=== PATIENT | female | born 1960 | race Caucasian/White ===

== ENCOUNTER 2016-09-04 08:01 | Outpatient (CLI) ==
[2015-11-29 16:42] VITALS: BMI 31.8
--- NOTE | 2016-09-04 09:29 | MAMMO ---
EXAM: Digital screening mammogram HISTORY: Screening mammogram COMPARISON: Mammogram 03/17/2015 FINDINGS: Bilateral CC and MLO views of the breasts were performed digitally and demonstrate scatte red fibroglandular breast density (25 - 50%). There is no abnormal nodule or calcification. Benign calcifications are unchanged. There is no significant interval change. IMPRESSION: No new or suspicious calcification or nodule RECOMMENDATION: Annual screening mammogram BIRADS category II: Benign findings
== END 2016-09-04 08:02 | disposition home or self-care (01) ==
LOC: RAD 08:01
PROVIDERS: ATTEND Physician Assistant
DX: Z12.31 Encounter for screening mammogram for malignant neoplasm of breast (principal)

== ENCOUNTER 2017-01-06 14:29 | Emergency (ER) ==
[2017-01-06 14:42] VITALS: BP 174/70; TEMP 99.9; BMI 31.6
--- NOTE | 2017-01-06 16:11 | ED.PDOC ---
General ED Provider: Dr. SKYLER JIMENEZ JR Chief Complaint: Back Pain Stated Complaint: LOWER BACK. HAS BEEN TREATED FOR UTI WITH BACTRUM IN THE PAST WEEK. BLOOD IN URINE[End]5 days 99.9 86 20 96% 174/70 10 brunilda was on bactrim took for a week states stopped two days ago but then significant other notes returned and had a negative urine- knows day of week month person and place - early dementia present LOWER BACK PAIN right and left flank and lower Time Seen by Physician: 16:10 Mode of Arrival: Walk-In Information Source: Patient, Family Exam Limitations: No limitations Primary Care Provider: JAYLA DONALD Nursing and Triage Documentation Reviewed and Agree: No Review of Systems - Review Of Systems Constitutional: Reports: Malaise Eyes: Reports: No symptoms Ears, Nose, Mouth, Throat: Reports: No symptoms Respiratory: Reports: No symptoms Cardiac: Reports: No symptoms GI: Reports: No symptoms : Reports: Hematuria, Pain Musculoskeletal: Reports: Back pain, Muscle pain, Muscle stiffness Skin: Reports: No symptoms Neurological: Reports: Weakness Endocrine: Reports: No symptoms Hematologic/Lymphatic: Reports: No symptoms All Other Systems: Other Past Medical History - Past Medical History Endocrine: Reports: Hypothyroid, Dyslipidemia Cardiovascular: Reports: Hypertension Respiratory: Reports: COPD Hematological: Reports: None Gastrointestinal: Reports: None Genitourinary: Reports: None, UTI Neuro/Psych: Reports: Migraine, Anxiety, Depression Musculoskeletal: Reports: Arthritis, Back Pain (CHRONIC PAIN MANGEMENT) Cancer: Reports: None Last Menstrual Period: 1994 - Surgical History General Surgical History: Reports: Hysterectomy, - Family History Family History: Reports: Unknown - Social History Smoking Status: Current every day smoker, Heavy tobacco smoker Hx Substance Use: No Alcohol Screening: None - Immunizations Tetanus Shot up to Date: Yes Physical Exam - Physical Exam Appearance: Ill-appearing Ill-appearing: Moderate Pain Distress: Moderate Eyes: JOSSELINE, EOMI, Conjunctiva clear ENT: Ears normal, Nose normal, Oropharynx normal Neck: Supple Respiratory: Airway patent, Breath sounds clear, Breath sounds equal, Respirations nonlabored Cardiovascular: RRR, Pulses normal, No rub, No murmur GI/: Soft, No masses, Bowel sounds normal, No Organomegaly, Tender Musculoskeletal: Normal strength Skin: Warm, Dry, Normal color Neurological: Sensation intact, Motor intact, Reflexes intact, Cranial nerves intact, Alert, Oriented Psychiatric: Affect appropriate, Mood appropriate Critical Care Note - Critical Care Note Total Time (mins): 0 Course - Course Orders, Labs, Meds: Lab Review 01/06/17 16:06 Urine Color Yellow Urine Clarity Clear Urine pH 7.0 Ur Specific [place] 1.010 Urine Protein Negative Urine Glucose (UA) Negative Urine Ketones Negative Urine Blood Trace-lysed Urine Nitrite Negative Urine Bilirubin Negative Urine Urobilinogen 0.2 Ur Leukocyte Esterase 1+ Urine Microscopic RBC 0-2 Urine Microscopic WBC 0-2 Ur Squamous Epith Cells 2-5 Urine Bacteria Trace Orders Category Date Time Status CHLAMYDIA/GC AMPLIFICATION Stat LAB 01/06/17 16:06 Received UA [URINALYSIS C & S IF INDICATED] Stat LAB 01/06/17 16:[address] ABDOMEN/PELVIS WO CONTRAST Stat RADS 01/06/17 16:31 Completed Vital Signs: Temp Pulse Resp BP Pulse Ox 01/06/17 14:38 99.9 F H 86 20 174/70 H 96 Departure - Departure Time of Disposition: 18:00 Disposition: HOME SELF-CARE Discharge Problem: Backache Instructions: Acute Low Back Pain (ED) Condition: Good Pt referred to PMD for follow-up: Yes Additional Instructions: 8-10 cups of water daily no lifting for three days naprosyn for pain norco for pain not resolved flexeril for back spasms caution - norco and flexeril both cause drowsiness recheck PMD one week Prescriptions: Hydrocodone Bit/Acetaminophen [[place] 5-325] 1 - 2 tab PO Q6HR PRN #12 tablet PRN Reason: pain Naproxen [Naprosyn] 500 mg PO Q12HR PRN #30 tablet PRN Reason: PAIN Cyclobenzaprine HCl [Flexeril] 5 mg PO TID PRN #15 tablet PRN Reason: Spasms Allergies/Adverse Reactions: Allergies chlordiazepoxide HCl [From Librium] Adverse Reaction (Verified 11/29/15 16:55) doxepin [Doxepin] Adverse Reaction (Verified 11/29/15 16:55) quetiapine fumarate [From Seroquel] Adverse Reaction (Verified 11/29/15 16:55) Home Medications: Ambulatory Orders Aspirin [Taye Chewable Aspirin] 81 mg PO DAILY 08/28/13 Clonazepam 1 mg PO 1-3XD 08/28/13 Levothyroxine Sodium [Synthroid] 25 mcg PO DAILY 08/28/13 Lisinopril/Hydrochlorothiazide [Lisinopril-Hctz 20-25 mg Tab] 1 tab PO DAILY 12/06 Pravastatin Sodium [Pravachol] 20 mg PO BEDTIME 08/28/13 Hydrocodone/Acetaminophen [Vicodin 5-300 mg Tablet] 5 mg PO BID PRN 09/10/15 Venlafaxine HCl [Effexor Xr] 150 mg PO BID 09/10/15 Perphenazine 12 mg PO BEDTIME 10/13/15 Cyclobenzaprine HCl [Flexeril] 5 mg PO TID PRN #15 tablet 01/06/17 Hydrocodone Bit/Acetaminophen [[place] 5-325] 1 - 2 tab PO Q6HR PRN #12 tablet Naproxen [Naprosyn] 500 mg PO Q12HR PRN #30 tablet 01/06/17
[2017-01-06 16:21] LABS: BILIRUBIN,URINE Negative (NEGATIVE); KETONES,URINE Negative (NEGATIVE); LEUKOCYTE ESTERASE ,URINE 1+ (NEGATIVE); NITRITE,URINE Negative (NEGATIVE); PROTEIN,URINE Negative (NEGATIVE); URINE, BLOOD Trace-lysed (NEGATIVE)
[2017-01-06 16:23] LABS: ADD URINE MICROSCOPIC YES
[2017-01-06 16:24] LABS: BACTERIA,URINE TRACE (NOT PRESENT)
--- NOTE | 2017-01-06 17:00 | CT ---
EXAM: CT of the abdomen pelvis without contrast History: Abdominal pain, kidney stone. Comparison: CT abdomen pelvis 10/13/2015 Technique: Multiplanar CT images through the abdomen pelvis were obtained without the administratio n of IV contrast Findings: Lung bases are free of consolidation. No acute osseous abnormalities. Fatty infiltration of the liver. No discrete gallstones identified by CT. No peripancreatic inflam mation. Adrenal glands are unremarkable. No bowel obstruction. No free air. No ascites. No blad chery wall thickening. Uterus is not seen. No perirectal inflammation. The appendix is not dilated or inflamed. No renal stones. No ureteral calculi. No hydronephrosis. Impression: 1. No acute intra-abdominal or pelvic process. 2. Fatty infiltration of the liver.
== END 2017-01-06 18:18 | disposition home or self-care (01) ==
LOC: ED 14:29
DX: M54.5 Low back pain (principal); F17.210 Nicotine dependence, cigarettes, uncomplicated; Z79.899 Other long term (current) drug therapy
CPT/HCPCS: 36415; 81001; 87800; 99282

== ENCOUNTER 2017-01-13 18:21 | Outpatient (CLI) | END 2017-01-13 18:22 | disposition home or self-care (01) | LOC: AMBL 18:21 | PROVIDERS: ATTEND Emergency Medicine | DX: F41.0 Panic disorder [episodic paroxysmal anxiety] (principal); R06.4 Hyperventilation ==

== ENCOUNTER 2017-01-20 13:29 | Outpatient (CLI) | END 2017-01-20 13:30 | disposition home or self-care (01) | LOC: AMBL 13:29 | PROVIDERS: ATTEND Family Medicine | DX: R06.4 Hyperventilation (principal); R00.0 Tachycardia, unspecified ==

== ENCOUNTER 2017-01-21 13:00 | Outpatient (RCR) ==
--- NOTE | 2017-01-17 16:17 | RS.OPPTEV2 ---
Date of Note: 01/17/17 Visit #: 1 Date of Evaluation: 01/17/17 Payer Source: Medicaid Treatment Diagnosis: Vertigo, Dizziness History of Condition/Mechanism of Injury:: Patient reports a history of dizziness since 1992. Reports no head trauma or injury at the time of onset. States she did received treatment years ago for dizziness, which did help temporarily. Prior Level of Function.....Patient was independent with: ADL's, Self Care, Caregiving, Ambulation/Mobility, Community Integration/Access Functional Limitations: ADL's, Ambulation, Community Access/Integration Current Subjective/complaints:: Patient reports having dizzy episodes on a daily basis. Dizziness is triggered when turning over in bed, bending down/ bending over. States she drives and does not have dizziness when turning her head. She decribes her dizziness as feeling drunk. States she gets nauseated and has actually vomitted due to her dizziness. Denies neck pain or limited ROM. She takes medication for anxiety and has fallen due to a high moment of anxiety. She has taken medication such as Antivert in the past, but states she has not taken anything for dizziness in several years. Medical History Medical History: Hypertension, COPD Smoking Status: Current every day smoker Hx Home Medications: medication list not provided Patient's Goals: Her goal is to get relief of dizziness. Functional Outcome Measure - G Codes & Severity Modifier G Codes & Modifier: NA Source of G Code score: Na Observation - Observation Posture: Forward Head, Rounded Shoulders Gait - Gait Pattern Gait Comments: Patient ambulates without an assistive device with a cautious gait. Demonstrates no loss of balance while ambulating in the department. - ROM Comments: Cervical AROM is WFL's. Patient reports end range extension and right rotation trigger dizziness. Dizziness quickly resolves after returning to a neutral position. - Strength Cervical Extension: 5 Normal Cervical Flexion: 5 Normal Cervical Lateral Flexion: 5 Normal Cervical Rotation: 5 Normal Palpation Comments:: Patient denies tenderness with palpation throughout the cervical spine and suboccipital myofascia. Sensation - Sensation Right Upper Extremity: Intact/Normal Left Upper Extremity: Intact/Normal Additional Comments: Additional Comments: Modified VA test negative bilaterally. Sharp-Liliana (C2) is negative for instability. OCCULOMOTOR ASSESSMENT. Spontaneous Nystagmus is negative. Demonstrates left nystagmus with gaze change 30 degrees upper right and upper left. No saccades noted. Demonstrates no abnormality with convergence. Head Thrust and Head -Shaking Nystagmus demonstrates left sidede Nystagmus. Hallpike Eden is positive left and right, Roll Test negative bilaterally. Interventions - Exercise/Activities/Manual Therapy Exercises/Activities: Patient instructed in and performs Gopal maneuver for left sided BPPV. Given hand out for step by step instructions to perform Gopal maneuver at home. Instructed to perform 2-3 times a day and to stop if the maneuver seems to make her symptoms worse. Manual Therapy: NA HOME EXERCISE PROGRAM: left Gopal maneuver - Charges Total Direct Minutes: 55 mins Total Treatment Time: 55 mins Procedures billed for this date of service:: [facility] Assessment Assessment: Patient presents to therapy with diagnosis of BPPV. She demonstrates symptoms BPPV with involvement of the left anterior/posterior canals. She displays potential to benefit from performing Gopal maneuver to resolve her symptoms. Patient Education: Education of diagnosis, Home Exercise Program, Home Safety, Activity Modification, Education of Plan of Care Rehab Potential: Good Short Term Goals Goal #1: Pt to demonstrates ability to perform Gopal maneuver independently. Goal to be met by: 01/24/17 Progress towards Goal:: Progressing Duplex Trimmer Goals Goal #1: Pt to report no dizziness with turning over in bed or bending over. Goal to be met by: 02/07/17 Plan - Treatment to be Provided Procedures: Canalith Repositioning, Patient Education Modalities: No Modalities - Treatment Plan Frequency: 1-2 X week Duration: 3 weeks ORDER # VISITS AND/OR THROUGH DATE: 02/07/17 - Treatment Code (1) Dizziness Comments: R42 (2) BPPV (benign paroxysmal positional vertigo) Qualifiers: Laterality: left Qualified Description: Benign paroxysmal positional vertigo, left Qualifier Code(s): (H81.12) Benign paroxysmal vertigo, left ear
--- NOTE | 2017-01-21 13:53 | RS.OPPTDN ---
Subjective Date of Note: 01/21/17 Visit #: 2 Date of Evaluation: 01/17/17 Payer Source: Medicaid Treatment Diagnosis: Vertigo, Dizziness Current Subjective/complaints:: Mrs. Price states she feels a little less dizzy today. States she did not get a chance to work on the maneuver very much over the long weekend. States they had a lot of family drama. Agrees to perform the Gopal maneuver as demonstrated, 2-3 times a day this week. Interventions - Exercise/Activities/Manual Therapy Exercises/Activities: Reviewed and had patient perform the Gopal maneuver X 2. Patient's main reports of dizziness are with the head turn to the right and then moving into the final position from right sidelying to sitting. Reviewed instructions to avoid bending over and to sleep with head elevated approximately 30 degrees. Manual Therapy: NA HOME EXERCISE PROGRAM: left Gopal maneuver - Charges Total Direct Minutes: 15 mins Total Treatment Time: 15 mins Procedures billed for this date of service:: EX Assessment: Patient demonstrates the abilty to perform the Gopal maneuver independently. She will follow up with us for at least one more session to check her progress. Short Term Goals Goal #1: Pt to demonstrates ability to perform Gopal maneuver independently. Goal to be met by: 01/24/17 Progress towards Goal:: Progressing Shop Lead Goals Goal #1: Pt to report no dizziness with turning over in bed or bending over. Goal to be met by: 02/07/17 Plan PLAN OF CARE EXPIRES ON:: 02/07/17 ORDER # VISITS AND/OR THROUGH DATE: 02/07/17 PLAN: Continue Plan of Care
== END 2017-01-22 ==
PROVIDERS: ATTEND Physician Assistant
DX: H81.13 Benign paroxysmal vertigo, bilateral (principal)

== ENCOUNTER 2017-03-07 12:36 | Outpatient (CLI) | END 2017-03-07 12:37 | disposition home or self-care (01) | LOC: CAR 12:36 | PROVIDERS: ATTEND Physician Assistant | DX: Z51.81 Encounter for therapeutic drug level monitoring (principal); Z79.899 Other long term (current) drug therapy | CPT/HCPCS: 93005; 93010 ==

== ENCOUNTER 2017-06-13 14:40 | Outpatient (CLI) ==
[2017-06-14 06:13] LABS: RHEUMATOID ARTHRITIS FACTOR < 10.0 IU/mL (0.0-13.9)
[2017-06-16 19:12] LABS: ANTI-NUCLEAR ANTIBODY SCREEN Negative (Negative)
== END 2017-06-13 14:41 | disposition home or self-care (01) ==
LOC: LAB 14:40
PROVIDERS: ATTEND Physician Assistant
DX: M13.0 Polyarthritis, unspecified (principal); R30.0 Dysuria
CPT/HCPCS: 36415; 82306; 86038; 86200; 86430

== ENCOUNTER 2017-07-06 12:15 | Emergency (ER) ==
[2017-07-06 12:19] VITALS: BP 145/78; TEMP 97.8; BMI 30.9
--- NOTE | 2017-07-06 13:52 | CT ---
EXAM: CT of the chest without contrast History: Chest trauma and right rib pain, back pain. Comparison: Chest CT 09/10/2015 Technique: Multiplanar CT images through the thorax were obtained without the administration of IV c ontrast Findings: Heart size is within normal limits. No pericardial effusion. Great vessels are unremarka ble. No pathologically enlarged thoracic lymph nodes. Calcified granulomas again seen within the th orax. No consolidation. No pleural fluid and no pneumothorax. No suspicious lung masses or lung no dules. Within the visualized upper abdomen, no acute findings. The liver is probably fatty. No acute osseo us abnormalities. Impression: No acute intrathoracic process
--- NOTE | 2017-07-06 13:55 | CT ---
EXAM: CT of the thoracic spine without contrast History: Thoracic back trauma. Comparison: Chest CT 07/06/2017 Technique: Multiplanar CT images through the thoracic spine were obtained without the administration of IV contrast Findings: The visualized lungs are free of consolidation. Calcified granulomas are seen within the thorax. No acute fracture or subluxation of the thoracic spine. Mild to moderate multilevel degenerative dis c space narrowing with endplate sclerosis and small osteophyte formation. Bony spinal canal is not c ompromised. Impression: No acute osseous abnormality of the thoracic spine. Mild to moderate degenerative disc disease
--- NOTE | 2017-07-06 14:08 | ED.PDOC ---
General ED Provider: Dr. JESSICA CHOW Chief Complaint: Chest Wall Injury/Pain Stated Complaint: chest wall right sided Time Seen by Physician: 12:30 (blunt trauma force chest wall 3days ago) Mode of Arrival: Walk-In Information Source: Patient Exam Limitations: No limitations Primary Care Provider: JAYLA DONALD Nursing and Triage Documentation Reviewed and Agree: Yes Trauma/Injury Complaint Exam - Trauma Complaint/Exam Location of Pain or Injury: Reports: Chest, Back (thoracic) Mechanism of Injury: Reports: Fall Onset/Duration: 3 days ago Symptoms Are: Still present Initial Severity: Mild Current Severity: Mild Character: Reports: Aching Aggravating: Reports: Movement Alleviating: Reports: None Associated Signs and Symptoms: Denies: LOC, Confusion, Memory loss, Lethargy, Vomiting, Bleeding, Bruising, Swelling, Extremity disuse, Painful respiration, Hoarseness, Dysphagia, Hemoptysis, Significant blood loss Related History: Reports: Similar episode Penetrating Injury Risk Factors: Reports: None Related Surgical History: Reports: None Nexus Low Risk Criteria: No post-midline CS tender, No evidence of intoxicat., No Altered LOC, No focal neuro deficit, No distracting injuries Glascow Coma Scale (see protocol): 15 Trauma Findings: Absent: [place] eyes, Hemotympanum, Dental tenderness, Dental injury, Neck tenderness, Airway obstructed, Pelvic instability Differential Diagnoses: Contusions Review of Systems - Review Of Systems Constitutional: Reports: No symptoms Eyes: Reports: No symptoms Ears, Nose, Mouth, Throat: Reports: No symptoms Respiratory: Reports: No symptoms Cardiac: Reports: Chest pain (right chest wall) GI: Reports: No symptoms : Reports: No symptoms Musculoskeletal: Reports: No symptoms Skin: Reports: No symptoms Neurological: Reports: No symptoms Endocrine: Reports: No symptoms Hematologic/Lymphatic: Reports: No symptoms All Other Systems: Reviewed and Negative Past Medical History - Past Medical History Previously Healthy: Yes Endocrine: Reports: Hypothyroid, Dyslipidemia Cardiovascular: Reports: Hypertension Respiratory: Reports: COPD Hematological: Reports: None Gastrointestinal: Reports: None Genitourinary: Reports: None, UTI Neuro/Psych: Reports: Migraine, Anxiety, Depression Musculoskeletal: Reports: Arthritis, Back Pain Cancer: Reports: None Last Menstrual Period: HYSTERECTOMY - Surgical History General Surgical History: Reports: Hysterectomy, - Family History Family History: Reports: Unknown - Social History Smoking Status: Current every day smoker, Heavy tobacco smoker Hx Substance Use: No Alcohol Screening: None - Immunizations Tetanus Shot up to Date: No Physical Exam - Physical Exam Appearance: Well-appearing, No pain distress, Well-nourished Eyes: JOSSELINE, EOMI, Conjunctiva clear ENT: Ears normal, Nose normal, Oropharynx normal Respiratory: Airway patent, Breath sounds clear, Breath sounds equal, Respirations nonlabored Cardiovascular: RRR, Pulses normal, No rub, No murmur GI/: Soft, Nontender, No masses, Bowel sounds normal, No Organomegaly Musculoskeletal: Normal strength, ROM intact, No edema, No calf tenderness Skin: Warm, Dry, Normal color Neurological: Sensation intact, Motor intact, Reflexes intact, Cranial nerves intact, Alert, Oriented Psychiatric: Affect appropriate, Mood appropriate Critical Care Note - Critical Care Note Total Time (mins): 0 Course - Course Orders, Labs, Meds: Orders Category Date Time Status CT CHEST W/O CONTRAST Stat RADS 07/06/17 13:[address] THORACIC SPINE W/O CONTRAST Stat RADS 07/06/17 13:07 Completed Vital Signs: Temp Pulse Resp BP Pulse Ox 07/06/17 12:16 97.8 F 99 H 18 145/78 H 99 Departure - Departure Time of Disposition: 14:09 Disposition: HOME SELF-CARE Discharge Problem: Chest wall pain, Chest injury Instructions: Chest Wall Pain (ED), Noncardiac Chest Pain (ED) Condition: Good Pt referred to PMD for follow-up: Yes Allergies/Adverse Reactions: Allergies chlordiazepoxide HCl [From Librium] Adverse Reaction (Verified 07/06/17 12:19) doxepin [Doxepin] Adverse Reaction (Verified 07/06/17 12:19) quetiapine fumarate [From Seroquel] Adverse Reaction (Verified 07/06/17 12:19) Home Medications: Ambulatory Orders Aspirin [Taye Chewable Aspirin] 81 mg PO DAILY 08/28/13 Clonazepam 1 mg PO 1-3XD 08/28/13 Levothyroxine Sodium [Synthroid] 25 mcg PO DAILY 08/28/13 Lisinopril/Hydrochlorothiazide [Lisinopril-Hctz 20-25 mg Tab] 1 tab PO DAILY 12/06 Pravastatin Sodium [Pravachol] 20 mg PO BEDTIME 08/28/13 Venlafaxine HCl [Effexor Xr] 150 mg PO BID 09/10/15 Perphenazine 12 mg PO BEDTIME 10/13/15 Hydrocodone Bit/Acetaminophen [[place] 5-325] 1 - 2 tab PO Q6HR PRN #12 tablet
== END 2017-07-06 14:15 | disposition home or self-care (01) ==
LOC: ED 12:15
DX: R07.89 Other chest pain (principal); W22.8XXA Striking against or struck by other objects, initial encounter; F17.210 Nicotine dependence, cigarettes, uncomplicated
CPT/HCPCS: 99283

== ENCOUNTER 2017-08-22 11:08 | Emergency (ER) ==
[2017-08-22 11:18] VITALS: BP 123/74; TEMP 100.1; BMI 30.8
--- NOTE | 2017-08-22 11:29 | DI ---
EXAM: CHEST FRONTAL VIEW HISTORY: Cough. COMPARISON: 12/20/2014 FINDINGS: Upper limit normal heart size is stable. No acute infiltrates are seen. No vascular conge stion. There is no consolidation, visible pleural fluid or pneumothorax. Bones reveal no acute fract ure. IMPRESSION: No acute cardiopulmonary process. If symptoms persist, consider follow up with full i nspiration, standing two-view chest radiography using PA and lateral technique.
--- NOTE | 2017-08-22 12:16 | ED.PDOC ---
General ED Provider: Dr. JESSICA CHOW Chief Complaint: Respiratory Complaint Stated Complaint: cough, congestion, Time Seen by Physician: 11:10 (SOMKE 1 PK/DAY ) Mode of Arrival: Walk-In Information Source: Patient Exam Limitations: No limitations Primary Care Provider: JAYLA DONALD Nursing and Triage Documentation Reviewed and Agree: Yes Reviewed sepsis parameters & appropriate labs ordered?: Yes System Inflammatory Response Syndrome: Not Applicable Sepsis Protocol: For patient's 13 years and over: Temp is 96.8 and below OR 101 and greater Pulse >90 BPM Resp >20/minute Acutely Altered Mental Status Are patient's symptoms suggestive of a new infection, such as: -Pneumonia -Skin, Soft Tissue -Endocarditis -UTI -Bone, Joint Infection -Implantable Device -Acute Abdominal Infection -Wound Infection -Meningitis -Blood Stream Catheter Infection -Unknown Respiratory Complaint Exam - Respiratory Complaint/Exam Onset/Duration: 2 DAYS Symptoms Are: Still present Timing: Intermittent Initial Severity: Moderate Current Severity: Moderate Location: Throat, Chest Character: Reports: Non-productive cough Aggravating: Reports: None Associated Signs and Symptoms: Reports: URI, Nasal congestion. Denies: Rapid breathing, Dyspnea, Fever, Chills, Chest pain, Pleuritic chest pain, Wheezing, Hemoptysis, Dizziness, Calf pain, Calf swelling, Edema, Hoarseness, Sinus discomfort, Vomiting, Sore throat, Weight loss, Decreased oral intake, Increased thirst, Increased appetite, Increased urination Related History: Reports: Similar episode History of Healthcare-Acquired Pneumonia: No Related Surgical History: Reports: None Pulmonary Embolism Risk Factors: None Home Oxygen Use: No Recent Stress Test: No Recent Echo/LV Function: No Current Antibiotic Use: No Respiratory Distress: None Inadequate Respiratory Effort: No Dysphagia Present: No Stridor Present: No JVD Present: No Retractions: Not Present Diminished Breath Sounds: No Grunting Respirations: No Kussmaul Respirations: No Differential Diagnoses: Bronchitis Review of Systems - Review Of Systems Constitutional: Reports: No symptoms Eyes: Reports: No symptoms Ears, Nose, Mouth, Throat: Reports: No symptoms Respiratory: Reports: Cough Cardiac: Reports: No symptoms GI: Reports: No symptoms : Reports: No symptoms Musculoskeletal: Reports: No symptoms Skin: Reports: No symptoms Neurological: Reports: No symptoms Endocrine: Reports: No symptoms Hematologic/Lymphatic: Reports: No symptoms All Other Systems: Reviewed and Negative Past Medical History - Past Medical History Previously Healthy: Yes Endocrine: Reports: Hypothyroid, Dyslipidemia Cardiovascular: Reports: Hypertension Respiratory: Reports: COPD Hematological: Reports: None Gastrointestinal: Reports: None Genitourinary: Reports: None, UTI Neuro/Psych: Reports: Migraine, Anxiety, Depression Musculoskeletal: Reports: Arthritis, Back Pain Cancer: Reports: None Last Menstrual Period: n/a - Surgical History General Surgical History: Reports: Hysterectomy, - Family History Family History: Reports: Unknown - Social History Smoking Status: Current every day smoker, Heavy tobacco smoker Hx Substance Use: No Alcohol Screening: None Physical Exam - Physical Exam Appearance: Well-appearing, No pain distress, Well-nourished Eyes: JOSSELINE, EOMI, Conjunctiva clear ENT: Ears normal, Nose normal, Oropharynx normal Respiratory: Airway patent, Breath sounds clear, Breath sounds equal, Respirations nonlabored Cardiovascular: RRR, Pulses normal, No rub, No murmur GI/: Soft, Nontender, No masses, Bowel sounds normal, No Organomegaly Musculoskeletal: Normal strength, ROM intact, No edema, No calf tenderness Skin: Warm, Dry, Normal color Neurological: Sensation intact, Motor intact, Reflexes intact, Cranial nerves intact, Alert, Oriented Psychiatric: Affect appropriate, Mood appropriate Critical Care Note - Critical Care Note Total Time (mins): 0 Course - Course Orders, Labs, Meds: Lab Review 08/22/17 11:40 Influenza A (Rapid) Negative by naat Influenza B (Rapid) Negative by naat Orders Category Date Time Status MOLECULAR FLU A/B Stat LAB 08/22/17 11:40 Completed MOLECULAR GROUP A STREP Stat LAB 08/22/17 11:45 Completed CHEST, 1V AP ONLY Stat RADS 08/22/17 11:13 Completed Vital Signs: Temp Pulse Resp BP Pulse Ox 08/22/17 11:08 100.1 F H 100 H 20 123/74 97 Departure - Departure Time of Disposition: 12:16 Disposition: HOME SELF-CARE Discharge Problem: Bronchitis Instructions: Acute Bronchitis (ED) Condition: Good Pt referred to PMD for follow-up: Yes Additional Instructions: Please call your Family Physician as soon as possible to schedule a follow-up appointment. Allergies/Adverse Reactions: Allergies chlordiazepoxide HCl [From Librium] Adverse Reaction (Verified 08/22/17 11:13) doxepin [Doxepin] Adverse Reaction (Verified 08/22/17 11:13) quetiapine fumarate [From Seroquel] Adverse Reaction (Verified 08/22/17 11:13) Home Medications: Ambulatory Orders Clonazepam 1 mg PO 1-3XD 08/28/13 Levothyroxine Sodium [Synthroid] 25 mcg PO DAILY 08/28/13 Lisinopril/Hydrochlorothiazide [Lisinopril-Hctz 20-25 mg Tab] 1 tab PO DAILY 12/06 Pravastatin Sodium [Pravachol] 20 mg PO BEDTIME 08/28/13 Venlafaxine HCl [Effexor Xr] 150 mg PO BID 09/10/15 Perphenazine 12 mg PO BEDTIME 10/13/15 Hydrocodone Bit/Acetaminophen [[place] 5-325] 1 - 2 tab PO Q6HR PRN #12 tablet
== END 2017-08-22 12:30 | disposition home or self-care (01) ==
LOC: ED 11:08
DX: J40 Bronchitis, not specified as acute or chronic (principal); F17.210 Nicotine dependence, cigarettes, uncomplicated
CPT/HCPCS: 87502; 87651; 99283

== ENCOUNTER 2018-02-26 10:49 | Outpatient (CLI) ==
--- NOTE | 2018-02-26 11:33 | CT ---
EXAM: CT of the head without contrast History: Memory impairment Comparison: Head CT 11/29/2015 Technique: Multiplanar CT images through the head were obtained without the administration of IV con trast Findings: The visualized paranasal sinuses and mastoid air cells are clear in general. No acute doug varial abnormalities. Intracranially the ventricular and cisternal spaces are normal in size, shape and configuration for a patient of this age. No dominant mass or midline shift. No hydrocephalous. No acute intracranial hemorrhage or abnormal extraaxial fluid collections. Impression: No acute intracranial process.
== END 2018-02-26 10:50 | disposition home or self-care (01) ==
LOC: RAD 10:49
PROVIDERS: ATTEND Physician Assistant
DX: R41.3 Other amnesia (principal)

== ENCOUNTER 2018-02-27 12:02 | Outpatient (CLI) ==
--- NOTE | 2018-02-27 13:08 | US ---
EXAM: Bilateral carotid artery Doppler History: Facial numbness, dizziness and hypertension. Technique: Multiple sonographic images through the bilateral internal carotid arteries were obtained . Color duplex Doppler was used to interrogate vascular flow. Findings: The right ICA peak systolic velocities within normal limits measuring 0.8 meters per second. The rig ht ICA/cca PSV ratio is normal at 1.3. The right vertebral artery is patent and demonstrates antegra de flow. Manjarrez scale images demonstrate mild plaque buildup within the right internal carotid artery. The left ICA peak systolic velocity is within normal limits measuring 1.1 meters per second. The lef t ICA/cca PSV ratio is normal at 1.7. Left vertebral artery is patent and demonstrates antegrade tammie w. Manjarrez scale images demonstrate mild plaque buildup within the left internal carotid artery Impression: No significant hemodynamic stenosis of the bilateral internal carotid arteries.
== END 2018-02-27 12:03 | disposition home or self-care (01) ==
LOC: RAD 12:02
PROVIDERS: ATTEND Physician Assistant
DX: R20.0 Anesthesia of skin (principal)

== ENCOUNTER 2018-03-12 12:10 | Outpatient (CLI) | END 2018-03-12 12:11 | disposition home or self-care (01) | LOC: LAB 12:10 | PROVIDERS: ATTEND Physician Assistant | DX: D64.9 Anemia, unspecified (principal); R07.9 Chest pain, unspecified | CPT/HCPCS: 36415; 80053; 82728; 83540; 83550; 84439; 84443; 85025; 93005; 93010 ==

== ENCOUNTER 2018-03-16 13:11 | Outpatient (CLI) | END 2018-03-16 13:12 | disposition home or self-care (01) | LOC: CAR 13:11 | PROVIDERS: ATTEND Physician Assistant | DX: R07.9 Chest pain, unspecified (principal) | CPT/HCPCS: 93227 ==

== ENCOUNTER 2018-09-18 09:58 | Outpatient (CLI) ==
--- NOTE | 2018-09-18 11:06 | MAMMO ---
EXAM: Digital screening mammogram with tomosynthesis HISTORY: Screening COMPARISON: 09/04/2016 FINDINGS: Digital MLO and CC views of the right and left breast were performed. Tomosynthesis was performed. Computer aided detection utilized. There are scattered fibroglandular densities. Benign calcification in the left breast. There is no evidence for mass, asymmetry, distortion, or suspicio us calcifications in either breast. IMPRESSION: 1. No evidence of malignancy in the right or left breast. 2. Annual screening mammogram is recommended in one year. BIRADS category 1, negative examination
== END 2018-09-18 09:59 | disposition home or self-care (01) ==
LOC: RAD 09:58
PROVIDERS: ATTEND Physician Assistant
DX: Z12.31 Encounter for screening mammogram for malignant neoplasm of breast (principal)

== ENCOUNTER 2018-10-01 08:11 | Outpatient (CLI) ==
--- NOTE | 2018-10-01 09:00 | US ---
EXAM: ULTRASOUND ABDOMEN LIMITED HISTORY: Epigastric pain FINDINGS: Ultrasound abdomen, limited. Manjarrez-scale ultrasound and color Doppler was performed. Live r size was measured at 9 cm, within normal limits. The liver parenchyma demonstrated normal sonograph ic appearance without evidence of intrahepatic biliary dilatation or focal lesion. Patent and hepato pedal main portal vein. No evidence of gallbladder stones or sludge. Gallbladder wall thickness was normal at 0.13 centimete rs and the common duct diameter normal at 0.43 centimeters. The visualized portions of the pancreas appeared unremarkable. IMPRESSION: Findings within normal limits.
== END 2018-10-01 08:12 | disposition home or self-care (01) ==
LOC: RAD 08:11
PROVIDERS: ATTEND Physician Assistant
DX: R10.13 Epigastric pain (principal)

== ENCOUNTER 2018-11-04 14:31 | Outpatient (CLI) ==
--- NOTE | 2018-11-04 15:07 | DI ---
EXAM: Two views of the chest. History: Cough. Comparison: Chest radiograph 08/22/2017 Findings: Heart size is upper limits of normal. No focal consolidation. No appreciable pleural flu id and no pneumothorax. No acute osseous abnormalities. Calcified granuloma again seen within the l eft lung. Impression: No acute cardiopulmonary process
== END 2018-11-04 14:32 | disposition home or self-care (01) ==
LOC: RAD 14:31
PROVIDERS: ATTEND Nurse Practitioner Family
DX: R05 Cough (principal)

== ENCOUNTER 2018-11-13 09:22 | Outpatient (CLI) | END 2018-11-13 09:23 | disposition home or self-care (01) | LOC: LAB 09:22 | PROVIDERS: ATTEND Nurse Practitioner Family | DX: E78.00 Pure hypercholesterolemia, unspecified (principal); E03.9 Hypothyroidism, unspecified; F17.210 Nicotine dependence, cigarettes, uncomplicated | CPT/HCPCS: 36415; 80053; 80061; 83036; 84443; 85025 ==

== ENCOUNTER 2019-01-01 15:32 | Outpatient (CLI) | END 2019-01-01 15:33 | disposition home or self-care (01) | LOC: LAB 15:32 | PROVIDERS: ATTEND Nurse Practitioner Family | DX: R23.3 Spontaneous ecchymoses (principal) | CPT/HCPCS: 36415; 82728; 83540; 83550; 85025 ==

== ENCOUNTER 2019-01-20 11:27 | Outpatient (CLI) | END 2019-01-20 11:28 | disposition home or self-care (01) | LOC: LAB 11:27 | PROVIDERS: ATTEND Nurse Practitioner Family | DX: D64.9 Anemia, unspecified (principal); R58 Hemorrhage, not elsewhere classified | CPT/HCPCS: 36415; 85025; 85045 ==

== ENCOUNTER 2019-02-02 14:26 | Outpatient (CLI) | END 2019-02-02 14:27 | disposition home or self-care (01) | LOC: LAB 14:26 | PROVIDERS: ATTEND Nurse Practitioner Family | DX: R53.83 Other fatigue (principal) | CPT/HCPCS: 36415; 82306; 82607; 82746; 84443 ==

== ENCOUNTER 2019-04-04 14:59 | Emergency (ER) ==
[2019-04-04 15:04] VITALS: BP 161/69; TEMP 98.3; BMI 29.6
--- NOTE | 2019-04-04 15:22 | ED.PDOC ---
General ED Provider: Dr. REAL ADAIR-ER Chief Complaint: Cough Stated Complaint: lori been camping and got a cough---i have copd---im not sob or running a fever Time Seen by Physician: 15:20 Mode of Arrival: Walk-In Information Source: Patient Exam Limitations: No limitations Primary Care Provider: NATALI VARGAS Nursing and Triage Documentation Reviewed and Agree: Yes Does patient meet sepsis criteria?: No System Inflammatory Response Syndrome: Not Applicable Sepsis Protocol: For patient's 13 years and over: Temp is 96.8 and below OR 101 and greater Pulse >90 BPM Resp >20/minute Acutely Altered Mental Status Are patient's symptoms suggestive of a new infection, such as: -Pneumonia -Skin, Soft Tissue -Endocarditis -UTI -Bone, Joint Infection -Implantable Device -Acute Abdominal Infection -Wound Infection -Meningitis -Blood Stream Catheter Infection -Unknown Respiratory Complaint Exam - Respiratory Complaint/Exam Onset/Duration: 4 days Symptoms Are: Still present Timing: Constant Initial Severity: Mild Current Severity: Moderate Location: Chest Character: Reports: Productive cough Aggravating: Reports: URI Associated Signs and Symptoms: Reports: URI Home Oxygen Use: No Recent Stress Test: No Recent Echo/LV Function: No Current Antibiotic Use: No Current Asthma Medication Use: No Respiratory Distress: None Inadequate Respiratory Effort: No Dysphagia Present: No Accessory Muscle Use: No Retractions: Not Present Diminished Breath Sounds: No Sinus Tenderness: None Grunting Respirations: No Kussmaul Respirations: No Review of Systems - Review Of Systems Constitutional: Reports: No symptoms Eyes: Reports: No symptoms Ears, Nose, Mouth, Throat: Reports: No symptoms Respiratory: Reports: Cough Cardiac: Reports: No symptoms GI: Reports: No symptoms : Reports: No symptoms Musculoskeletal: Reports: No symptoms Skin: Reports: No symptoms Neurological: Reports: No symptoms Endocrine: Reports: No symptoms Hematologic/Lymphatic: Reports: No symptoms All Other Systems: Reviewed and Negative Past Medical History - Past Medical History Previously Healthy: Yes Endocrine: Reports: Hypothyroid, Dyslipidemia Cardiovascular: Reports: Hypertension Respiratory: Reports: COPD Hematological: Reports: None Gastrointestinal: Reports: None Genitourinary: Reports: None, UTI Neuro/Psych: Reports: Migraine, Anxiety, Depression Musculoskeletal: Reports: Arthritis, Back Pain Cancer: Reports: None Last Menstrual Period: 08/25/1994 - Surgical History General Surgical History: Reports: Hysterectomy, - Family History Family History: Reports: Unknown - Social History Smoking Status: Current every day smoker Hx Substance Use: No Alcohol Screening: None - Immunizations Tetanus Shot up to Date: Yes Physical Exam - Physical Exam Appearance: Well-appearing, No pain distress, Well-nourished Eyes: JOSSELINE ENT: Ears normal, Nose normal, Oropharynx normal Neck: Supple Respiratory: Rhonchi, Wheezes Cardiovascular: RRR, Pulses normal, No rub, No murmur GI/: Soft, Nontender, No masses, Bowel sounds normal, No Organomegaly Musculoskeletal: Normal strength, ROM intact, No edema, No calf tenderness Skin: Warm, Dry, Normal color Neurological: Sensation intact, Motor intact, Reflexes intact, Cranial nerves intact, Alert, Oriented Psychiatric: Affect appropriate, Mood appropriate Critical Care Note - Critical Care Note Total Time (mins): 0 Course - Course Vital Signs: Temp Pulse Resp BP Pulse Ox 04/04/19 14:59 98.3 F 74 20 161/69 H 95 Departure - Departure Time of Disposition: 15:24 Disposition: HOME SELF-CARE Discharge Problem: COPD exacerbation Instructions: COPD (Chronic Obstructive Pulmonary Disease) (ED) Condition: Good Pt referred to PMD for follow-up: Yes IPMP verified?: No Allergies/Adverse Reactions: Allergies chlordiazepoxide HCl [From Librium] Adverse Reaction (Verified 04/04/19 15:07) doxepin [Doxepin] Adverse Reaction (Verified 04/04/19 15:07) quetiapine fumarate [From Seroquel] Adverse Reaction (Verified 04/04/19 15:07) Home Medications: Ambulatory Orders Levothyroxine Sodium [Synthroid] 25 mcg PO DAILY 08/28/13 Lisinopril/Hydrochlorothiazide [Lisinopril-Hctz 20-25 mg Tab] 1 tab PO DAILY 12/06 Pravastatin Sodium [Pravachol] 20 mg PO BEDTIME 08/28/13 Venlafaxine HCl [Effexor Xr] 150 mg PO BID 09/10/15 Perphenazine 12 mg PO BEDTIME 10/13/15 Disposition Discussed With: Patient
== END 2019-04-04 15:33 | disposition home or self-care (01) ==
LOC: ED 14:59
DX: J44.1 Chronic obstructive pulmonary disease with (acute) exacerbation (principal); F17.210 Nicotine dependence, cigarettes, uncomplicated
CPT/HCPCS: 99282

== ENCOUNTER 2019-04-09 21:23 | Emergency (ER) ==
[2019-04-09 21:56] VITALS: BP 186/98; TEMP 99
--- NOTE | 2019-04-09 22:49 | DI ---
EXAM: Pelvis, single view, right hip, two views, left hip, two views, 04/09/2019 HISTORY: Trauma COMPARISON: 04/09/2019 FINDINGS / IMPRESSION: The visualized osseous structures appear intact. Anatomic alignment appears within normal limits. There is no evidence of fracture or dislocation. No acute osseous abnormality.
--- NOTE | 2019-04-09 22:49 | DI ---
Exam: Right femur two-view History: Trauma and pain Findings / impression: No bony abnormality of the right femur or visualized adjacent clara pelvis. N egative exam.
--- NOTE | 2019-04-09 23:40 | ED.PDOC ---
General ED Provider: Dr. REAL ADAIR-ER Chief Complaint: Psychiatric Complaint Stated Complaint: im so upset--see triage notes Time Seen by Physician: 21:30 Mode of Arrival: Wheelchair Information Source: Patient Exam Limitations: No limitations Primary Care Provider: NATALI VARGAS Nursing and Triage Documentation Reviewed and Agree: Yes Does patient meet sepsis criteria?: No System Inflammatory Response Syndrome: Not Applicable Sepsis Protocol: For patient's 13 years and over: Temp is 96.8 and below OR 101 and greater Pulse >90 BPM Resp >20/minute Acutely Altered Mental Status Are patient's symptoms suggestive of a new infection, such as: -Pneumonia -Skin, Soft Tissue -Endocarditis -UTI -Bone, Joint Infection -Implantable Device -Acute Abdominal Infection -Wound Infection -Meningitis -Blood Stream Catheter Infection -Unknown Miscellaneous Complaint Exam - Complex/Multi-System Complaint/Exam Onset/Duration: today Symptoms Are: Still present Initial Severity: Mild Current Severity: Mild Associated Signs and Symptoms: Denies: Decreased responsiveness, Confusion, Agitation, Dizziness, Weakness, Syncope, Headache, Short of air, Cough, Wheezing , Hemoptysis, Chest pain, Palpitations, Edema, Nausea, Vomiting, Diarrhea, Abdominal pain, Back pain, Dysuria, Hematemesis, Melena, Decreased oral intake, Fever, Diaphoresis, Immunocompromised, Anticoagulation Therapy, Recent medication changes, Indwelling medical technologist clinical, Prior MRSA, Prior VRE, Recent trauma, Remote trauma Recent Echo/LV Function: No Respiratory Distress: None JVD Present: No Tachypnea Present: No Stridor Present: No Abdominal Findings: Present: Normal findings Meningeal Signs Positive: No Focal Weakness: Present: None Focal Sensory Loss: Present: None Gait: Normal Gag Reflex Present: Yes Babinski Sign: Negative Right, Negative Left Skin Findings: Present: Normal findings Joint Swelling Present: No In-Dwelling Device Present: No Quality Indicator For Non-Traumatic Chest Pain/Syncope: EKG Performed Review of Systems - Review Of Systems Constitutional: Reports: No symptoms Eyes: Reports: No symptoms Ears, Nose, Mouth, Throat: Reports: No symptoms Respiratory: Reports: No symptoms Cardiac: Reports: No symptoms GI: Reports: No symptoms : Reports: No symptoms Musculoskeletal: Reports: No symptoms Skin: Reports: No symptoms Neurological: Reports: Anxiety Endocrine: Reports: No symptoms Hematologic/Lymphatic: Reports: No symptoms All Other Systems: Reviewed and Negative Past Medical History - Past Medical History Previously Healthy: Yes Endocrine: Reports: Hypothyroid, Dyslipidemia Cardiovascular: Reports: Hypertension Respiratory: Reports: COPD Hematological: Reports: None Gastrointestinal: Reports: None Genitourinary: Reports: None, UTI Neuro/Psych: Reports: Migraine, Anxiety, Depression Musculoskeletal: Reports: Arthritis, Back Pain Cancer: Reports: None Last Menstrual Period: PT HAS HAD A HYSTERECTOMY - Surgical History General Surgical History: Reports: Hysterectomy, - Family History Family History: Reports: Unknown - Social History Smoking Status: Current every day smoker, Heavy tobacco smoker Hx Substance Use: No Alcohol Screening: None - Immunizations Tetanus Shot up to Date: Yes Physical Exam - Physical Exam Appearance: Well-appearing, No pain distress, Well-nourished Eyes: JOSSELINE, EOMI, Conjunctiva clear ENT: Ears normal, Nose normal, Oropharynx normal Neck: Supple Respiratory: Airway patent Cardiovascular: RRR, Pulses normal, No rub, No murmur GI/: Soft, Nontender, No masses, Bowel sounds normal, No Organomegaly Musculoskeletal: Normal strength, ROM intact, No edema, No calf tenderness Skin: Warm, Dry, Normal color Neurological: Sensation intact, Motor intact, Reflexes intact, Cranial nerves intact, Alert, Oriented Psychiatric: Affect appropriate, Mood appropriate, Anxious Interpretation - Radiology Interpretation Radiology Interpretation By: Radiologist Radiology Results: Negative - EKG Interpretation Time of EKG #1: 23:41 Rate: Normal Rhythm: Sinus Ectopy: None [place]: NL ST Segment: Normal Interpretation: nsr Critical Care Note - Critical Care Note Total Time (mins): 0 Course - Course Hematology/Chemistry: 04/09/19 22:00 04/09/19 22:00 Orders, Labs, Meds: Lab Review 04/09/19 04/09/19 04/09/19 22:00 22:00 23:00 WBC 11.13 H RBC 4.50 Hgb 12.0 Hct 37.6 MCV 83.6 MCH 26.7 L MCHC 31.9 RDW Coeff of Hali 16.1 H Plt Count 275 Immature Gran % (Auto) 0.3 Neut % (Auto) 58.1 Lymph % (Auto) 32.2 Bradley % (Auto) 7.7 Eos % (Auto) 1.4 Baso % (Auto) 0.3 Immature Gran # (Auto) 0.0 Neut # (Auto) 6.5 Lymph # (Auto) 3.6 H Bradley # (Auto) 0.9 Eos # (Auto) 0.2 Baso # (Auto) 0.0 Sodium 138.0 Potassium 3.54 Chloride 106.5 Carbon Dioxide 22.4 Anion Gap 12.64 BUN 12.6 Creatinine 1.03 Estimated GFR (MDRD) 55.00 BUN/Creatinine Ratio 12.23 Glucose 109.5 H Calcium 9.15 Total Bilirubin 0.40 AST 27.4 ALT 23.4 Alkaline Phosphatase 82.6 Total Protein 7.31 Albumin 4.31 Globulin 3.00 Albumin/Globulin Ratio 1.43 TSH 4.040 Urine Color Urine Clarity Urine pH Ur Specific [place] Urine Protein Urine Glucose (UA) Urine Ketones Urine Blood Urine Nitrite Urine Bilirubin Urine Urobilinogen Ur Leukocyte Esterase Salicylate Level mg/dL < 1.00 Urine Opiates Screen Negative Ur Oxycodone Screen Negative Urine Methadone Screen Negative Ur Propoxyphene Screen Negative Acetaminophen < 10.0 L Ur Barbiturates Screen Negative U Tricyclic Antidepress Negative Ur Phencyclidine Scrn Negative Ur Amphetamine Screen Negative U Methamphetamines Scrn Negative U Benzodiazepines Scrn Positive Urine Cocaine Screen Negative U Cannabinoids Screen Negative Plasma/Serum Alcohol < 10.0 04/09/19 23:00 WBC RBC Hgb Hct MCV MCH MCHC RDW Coeff of Hali Plt Count Immature Gran % (Auto) Neut % (Auto) Lymph % (Auto) Bradley % (Auto) Eos % (Auto) Baso % (Auto) Immature Gran # (Auto) Neut # (Auto) Lymph # (Auto) Bradley # (Auto) Eos # (Auto) Baso # (Auto) Sodium Potassium Chloride Carbon Dioxide Anion Gap BUN Creatinine Estimated GFR (MDRD) BUN/Creatinine Ratio Glucose Calcium Total Bilirubin AST ALT Alkaline Phosphatase Total Protein Albumin Globulin Albumin/Globulin Ratio TSH Urine Color Yellow Urine Clarity Clear Urine pH 7.0 Ur Specific [place] 1.010 Urine Protein Negative Urine Glucose (UA) Negative Urine Ketones Negative Urine Blood Negative Urine Nitrite Negative Urine Bilirubin Negative Urine Urobilinogen 0.2 Ur Leukocyte Esterase Negative Salicylate Level mg/dL Urine Opiates Screen Ur Oxycodone Screen Urine Methadone Screen Ur Propoxyphene Screen Acetaminophen Ur Barbiturates Screen U Tricyclic Antidepress Ur Phencyclidine Scrn Ur Amphetamine Screen U Methamphetamines Scrn U Benzodiazepines Scrn Urine Cocaine Screen U Cannabinoids Screen Plasma/Serum Alcohol Orders Category Date Time Status EKG-(ED ONLY) Stat CARDIO 04/09/19 21:26 Completed Mental Health Consult [ED MENTAL HEALTH CONSULT] .ONCE EMERGENCY 04/09/19 21: 27 Active BLOOD ALCOHOL Stat LAB 04/09/19 22:00 Completed CBC W/ AUTO DIFF Stat LAB 04/09/19 22:00 Completed COMPREHENSIVE METABOLIC PANEL Stat LAB 04/09/19 22:00 Completed SALICYLATE Stat LAB 04/09/19 22:00 Completed THYROID STIMULATING HORMONE Stat LAB 04/09/19 22:00 Completed TYLENOL LEVEL [ACETAMINOPHEN] Stat LAB 04/09/19 22:00 Completed URINALYSIS C & S IF INDICATED Stat LAB 04/09/19 23:00 Completed URINE DRUG SCREEN (RAPID FOR ED) [DRUG SCREEN, URINE, LAB 04/09/19 23:00 Completed RAPID] Stat FEMUR, RIGHT 2 VIEWS Stat RADS 04/09/19 21:49 Completed PELVIS & GIO HIPS Stat RADS 04/09/19 21:49 Completed Vital Signs: Temp Pulse Resp BP Pulse Ox 04/09/19 21:25 99 F 100 H 28 H 186/98 H 97 Departure - Departure Time of Disposition: 23:41 Disposition: HOME SELF-CARE Discharge Problem: Anxiety Instructions: Anxiety (ED) Condition: Good Pt referred to PMD for follow-up: Yes IPMP verified?: No Additional Instructions: keep f/u with mental health Allergies/Adverse Reactions: Allergies chlordiazepoxide HCl [From Librium] Adverse Reaction (Verified 04/09/19 21:42) doxepin [Doxepin] Adverse Reaction (Verified 04/09/19 21:42) quetiapine fumarate [From Seroquel] Adverse Reaction (Verified 04/09/19 21:42) Home Medications: Ambulatory Orders Levothyroxine Sodium [Synthroid] 25 mcg PO DAILY 08/28/13 Pravastatin Sodium [Pravachol] 20 mg PO DAILY 08/28/13 Venlafaxine HCl [Effexor Xr] 150 mg PO BID 09/10/15 Perphenazine 12 mg PO BEDTIME 10/13/15 Alprazolam [Xanax] 1 mg PO QID 04/09/19 Disposition Discussed With: Patient, Family
== END 2019-04-10 00:11 | disposition home or self-care (01) ==
LOC: ED 21:23
DX: F41.9 Anxiety disorder, unspecified (principal); E78.5 Hyperlipidemia, unspecified; I10 Essential (primary) hypertension; E03.9 Hypothyroidism, unspecified; F17.210 Nicotine dependence, cigarettes, uncomplicated; Z79.899 Other long term (current) drug therapy
CPT/HCPCS: 36415; 80053; 80306; 80307; 81001; 84443; 85025; 93005; 93010; 99283